=== PATIENT | female | born 1995 | race Asian ===

== ENCOUNTER 2020-05-05 06:27 | Day surgery (SDC) | payer OTHER, SELFPAY ==
[~2020-05-05] VITALS: Ht 157.5 cm; Wt 41.3 kg
[2020-05-05 06:52] LABS: HCG,QUAL RESULT NEGATIVE (NEGATIVE)
[2020-05-05] MEDS ORDERED: SIMETHICONE 40 MG/0.6 ML ML ONE (07:18)
[2020-05-05] MEDS ORDERED: fentaNYL CITRATE/PF 100 MCG/2 ML AMP ONE (07:18)
[2020-05-05] MEDS ORDERED: MIDAZOLAM HCL 5 MG/5 ML VIAL ONE (07:19)
[2020-05-05 10:52] VITALS: BP_SYST 105
== END 2020-05-05 10:20 | disposition home or self-care (01) ==
LOC: SDS 06:27 → SMU 06:28 → SDS 10:20
PROVIDERS: ATTEND Surgery
DX: R13.10 Dysphagia, unspecified (principal); K29.70 Gastritis, unspecified, without bleeding; Z11.59 Encounter for screening for other viral diseases
CPT/HCPCS: 43239; 84703; 88305; 88312; 88313; G0378; J2250; J3010; J7030; U0003